=== PATIENT | female | born 1995 | race Caucasian/White ===

== ENCOUNTER 2021-01-29 22:37 | Emergency (ER) | payer BC ==
[~2021-01-29] VITALS: Ht 152.4 cm; Wt 102.1 kg
[2021-01-29] MEDS ORDERED: LIDOCAINE HCL/MPF 1% 30 ML VIAL IJ ONE (23:42)
--- NOTE | 2021-01-30 01:20 | NUR ---
EMT AT BEDSIDE FOR WOUND CLEANING.
--- NOTE | 2021-01-30 01:26 | NUR ---
Patient discharged to home in stable condition. Written and verbal after care instructions given. Patient verbalizes understanding of instruction. Pt ambulated out of ED. VSS.
[2021-01-30 01:27] VITALS: BP 139/72
[2021-01-30] MEDS ORDERED: NEOMY SULF/BACITRAC ZN/POLY 15 GM TUBE TP SCH (01:30)
== END 2021-01-30 01:27 | disposition home or self-care (01) ==
LOC: EDBD 22:44 → ER 22:44
DX: S01.21XA Laceration without foreign body of nose, initial encounter (principal); S60.221A Contusion of right hand, initial encounter; S80.01XA Contusion of right knee, initial encounter; E11.9 Type 2 diabetes mellitus without complications; Z88.1 Allergy status to other antibiotic agents; W01.0XXA Fall on same level from slipping, tripping and stumbling without subsequent striking against object, initial encounter; Y93.89 Activity, other specified; Y92.89 Other specified places as the place of occurrence of the external cause; Y99.8 Other external cause status
CPT/HCPCS: 12011; 73130; 99283; A6403; J3490